=== PATIENT | male | born 1990 | race Hispanic/Latino ===

== ENCOUNTER 2017-11-08 09:16 | Emergency (ER) | payer OTHER ==
[2017-11-08] MEDS ORDERED: Sodium Chloride 0.9% 1,000 ML IV STA ×2 (09:48→11:11)
--- NOTE | 2017-11-08 10:12 | ED PDOC ---
HPI: General Adult Time Seen by Provider: 11/08/17 09:39 Chief Complaint (Nursing): Flu-like Symptoms Chief Complaint (Provider): Vomiting, Body Aches and Diarrhea History Per: Patient History/Exam Limitations: no limitations Additional Complaint(s): Dustin Turner, a 27 mei old male, presents to the ED complaining of body aches, headache associated with non bloody vomiting. The patient also notes a tactile fever and other flu like symptoms. He states that he has been taking motrin without relief. Denies abdominal pain and diarrhea but does note photophobia and sore throat. Past Medical History Reviewed: Historical Data, Nursing Documentation, Vital Signs Vital Signs: Last Vital Signs Temp 98 F 11/08/17 13:18 Pulse 64 11/08/17 13:18 Resp 18 11/08/17 13:18 BP 127/83 11/08/17 13:18 Pulse Ox 100 11/08/17 13:18 - Medical History PMH: No Chronic Diseases - Surgical History Surgical History: No Surg Hx - Family History Family History: States: Unknown Family Hx - Social History Current smoker - smoking cessation education provided: No Ex-Smoker (has not smoked in the last 12 months): No Alcohol: Social Drugs: Denies - Home Medications Home Medications: Ambulatory Orders Medication Instructions Recorded Naproxen [Naprosyn] 500 mg PO BID PRN #14 tablet 11/08/17 Ondansetron [Zofran] 4 mg PO Q6H PRN #10 tab 11/08/17 - Allergies Allergies/Adverse Reactions: Allergies Allergy/AdvReac Type Severity Reaction Status Date / Time No Known Allergies Allergy Verified 11/08/17 09:39 Review of Systems ROS Statement: Except As Marked, All Systems Reviewed And Found Negative Constitutional: Positive for: Fever (tactile), Other (body ache) ENT: Positive for: Throat Pain, Other (photophobia) Gastrointestinal: Negative for: Diarrhea Neurological: Positive for: Headache Physical Exam - Reviewed Nursing Documentation Reviewed: Yes Vital Signs Reviewed: Yes - Physical Exam Appears: Positive for: Non-toxic, No Acute Distress Skin: Positive for: Normal Color, Warm, Dry. Negative for: Rash Eye Exam: Positive for: Normal appearance, EOMI, PERRL. Negative for: Nystagmus ENT: Positive for: Normal ENT Inspection. Negative for: Nasal Congestion, Tonsillar Exudate, Tonsillar Swelling Neck: Positive for: Normal, Painless ROM, Supple Cardiovascular/Chest: Positive for: Regular Rate, Rhythm, Chest Non Tender. Negative for: Tachycardia Respiratory: Positive for: Normal Breath Sounds. Negative for: Wheezing, Respiratory Distress Gastrointestinal/Abdominal: Positive for: Normal Exam, Bowel Sounds, Soft. Negative for: Mass, Guarding, Rebound Back: Positive for: Normal Inspection. Negative for: L CVA Tenderness, R CVA Tenderness Extremity: Positive for: Normal ROM. Negative for: Tenderness, Deformity, Swelling Neurologic/Psych: Positive for: Alert, Oriented, Gait - Laboratory Results Result Diagrams: 11/08/17 10:18 11/08/17 10:18 - ECG O2 Sat by Pulse Oximetry: 99 (RA) Pulse Ox Interpretation: Normal Medical Decision Making Medical Decision Makin Initial impression 27 y/o male presenting with flu like symptoms Initial Plan: * CMP * Total Creatinine Kinase * CBC * NS 1000 ml IV 1000 mls/hr * Toraadol 30mg IVP * Zofran 4mg * Influenza A B * Reevaluation labs reviewed WBC normal Flu neg Improved in ED, on re-eval states headache mostly resolved. Offered CT brain to r/o other serious pathology that can cause nausea/vomiting but he preferred to go home. DC from ED w normal neurologic status. Scribe Attestation Documented by Lanny Smith acting as a scribe for Ravindra Lemus DO. Provider Attestation All medical record entries made by the Scribe were at my direction and personally dictated by me. I have reviewed the chart and agree that the record accurately reflects my personal performance of the history, physical exam, medical decision making, and the department course for this patient. I have also personally directed, reviewed, and agree with the discharge instructions and disposition. Disposition - Clinical Impression Clinical Impression: Influenza-like symptoms, Vomiting - Patient ED Disposition Is Patient to be Admitted: No Counseled Patient/Family Regarding: Studies Performed, Diagnosis, Need For Followup, Rx Given - Disposition Referrals: Pam Pace MD [Staff Provider] - Disposition: Routine/Home Disposition Time: 18:40 Condition: STABLE Additional Instructions: Return to ER for any worse or new symptoms, persistent headache, fever, neck pain, rash, light sensitivity, or any concern. Take medication as directed. Avoid close contact with others. Prescriptions: Naproxen [Naprosyn] 500 mg PO BID PRN #14 tablet PRN Reason: Pain, Moderate (4-7) Ondansetron [Zofran] 4 mg PO Q6H PRN #10 tab PRN Reason: Nausea/Vomiting Instructions: Influenza (ED), Acute Headache (ED), Acute Nausea and Vomiting ( ED) Forms: [employer] ([place])
[2017-11-08 10:23] LABS: BASO % 0.4 % (0.0-2.0); EOS % 0.3 % (0.0-4.0); HEMATOCRIT 44.9 % (35.0-51.0); LYMPH # 1.5 K/uL (1.0-4.3); LYMPH % 16.2 % (20.0-40.0); MEAN CELL VOLUME 85.2 fl (80.0-94.0); MEAN CORPUSCULAR HEMOGLOBIN 28.3 pg (27.0-31.0); MEAN CORPUSCULAR HGB CONC 33.2 g/dL (33.0-37.0); MEAN PLATELET VOLUME 10.6 fl (7.2-11.7); MONO # 0.5 K/uL (0.0-0.8); MONO % 6.1 % (0.0-10.0); NRBC % 0.3 % (0.0-0.0); RED CELL DISTRIBUTION WIDTH 12.6 % (11.5-14.5)
[2017-11-08 10:33] LABS: BILIRUBIN,TOTAL 2.7 mg/dl (0.2-1.3); CALCIUM 9.8 mg/dL (8.4-10.2); CARBON DIOXIDE 24 mmol/L (22-30); CHLORIDE 104 mmol/L (98-107); GFR AFRICAN-AMERICAN > 60; GLUCOSE,RANDOM 104 mg/dL (75-110); SODIUM 137 mmol/l (132-148); TOTAL PROTEIN 8.5 G/DL (6.3-8.2)
[2017-11-08 10:48] LABS: ALB/GLOB RATIO 1.1 (1.0-2.1); ALKALINE PHOSPHATASE 55 U/L (38-126); ALT/SGPT 54 U/L (21-72); AST/SGOT 28 U/L (17-59); BLOOD UREA NITROGEN 12 mg/dl (9-20); POTASSIUM 4.3 MMOL/L (3.6-5.0)
[2017-11-08 13:19] VITALS: BP 127/83; PULSE 64; RESP 18; TEMP 98
[2017-11-10 08:16] VITALS: O2SAT 99
== END 2017-11-08 15:00 | disposition home or self-care (01) ==
LOC: H.ER 09:16
DX: R11.10 Vomiting, unspecified (principal); R50.9 Fever, unspecified; R51 Headache; M79.1 Myalgia; Z87.891 Personal history of nicotine dependence
CPT/HCPCS: 80053; 82550; 84484; 85025; 87804; 96374; 96375; 99283; J1885; J2405; J7040